=== PATIENT | female | born 1985 | race Caucasian/White ===

== ENCOUNTER 2020-05-15 18:45 | Emergency (ER) | payer MEDICARE, MEDICAID ==
[~2020-05-15] VITALS: Ht 162.6 cm; Wt 91.6 kg
[~2020-05-15 18:45] MED LIST: ABILIFY10 MG; ACCUNEB SO1.25 MG/1 INH; ACETAMINOPHEN-1 EAC1 PO; ADVIL PM CAPLE1 EACH PO; ALBUTEROL2.5 MG/31 INH; BACTRIM DS TAB1 EAC1 PO; BACTRIM DS TAB1 EACH; BACTRIM DS TAB1 EACH PO; BENTYL; BUSPIRONE HCL10 MG PO; BUTALB-APAP-CA1 EACH PO; CARAFATE 1 GM TA1 G1 PO; CIPROFLOXACIN500 M3 PO; CLEOCIN HCL150 MG PO; CLEOCIN HCL300 MG PO; CLONAZEPAM; CLONAZEPAM 1 MG1 M1 PO; COLACE 100 MG100 MG PO; COLACE100 MG PO; COMPAZINE10 MG PO; DESYREL; DOXYCYCLINE 10100 MG PO; DOXYCYCLINE HYC50 M1 PO; FIORICET 50-301 EACH PO; FLAGYL500 MG PO; GABAPENTIN; GUAIATUSSIN AC10 ML PO; HYDROCODON-ACE1 EACH PO; HYDROCODONE-AP1 EAC6 PO; HYDROXYZINE HCL25 M1 PO; IBUPROFEN 800800 M1 PO; KEFLEX500 MG PO; LIDOCAINE 22 %/30 GM MM; MULTI COMPLETE1 EACH PO; NORCO 5-325 TA1 EACH PO; PHENERGAN 25 MG25 M1 PO; PRAZOSIN HCL2 MG; PREDNISONE 20 M20 MG PO; PROMETHAZINE D480 ML PO; PROZAC 20 MG20 M1 PO; PROZAC20 MG PO; REMERON15 MG; TESSALON PERLE100 M1 PO; TOPAMAX 25 MG T25 M1 PO; TRAMADOL 50 MG50 MG PO; VENLAFAXINE HC150 M1; VENTOLIN HFA 1818 GM INH; VISTARIL 25 MG25 M1; VISTARIL 25 MG25 M1 PO; ZOFRAN 4 MG ORAL4 M1; ZPAK PO; ZYPREXA5 MG PO
[2020-05-15 18:56] VITALS: BP 147/81
[2020-05-15] MEDS ORDERED: SERTRALINE HCL100 MG PO (19:01)
[2020-05-15] MEDS ORDERED: LATUDA120 MG PO (19:01)
[2020-05-15] MEDS ORDERED: CLONAZEPAM 0.50.5 M1 PO (19:01)
[2020-05-15] MEDS ORDERED: DESYREL150 MG PO (19:02)
[2020-05-15] MEDS ORDERED: PROTONIX40 M2 PO (19:02)
[2020-05-15] MEDS ORDERED: SEROQUEL XR400 MG PO (19:02)
[2020-05-15] MEDS ORDERED: PRAZOSIN HCL5 MG PO (19:02)
[2020-05-15] MEDS ORDERED: HORIZANT600 MG PO (19:03)
[2020-05-15] MEDS ORDERED: BENZTROPINE MES1 MG PO (19:03)
== END 2020-05-15 19:36 | disposition home or self-care (01) ==
LOC: M.ERS 18:45
DX: Z20.828 Contact with and (suspected) exposure to other viral communicable diseases (principal); F17.210 Nicotine dependence, cigarettes, uncomplicated; Z88.1 Allergy status to other antibiotic agents; Z88.0 Allergy status to penicillin; Z98.51 Tubal ligation status; Z90.710 Acquired absence of both cervix and uterus; Z85.89 Personal history of malignant neoplasm of other organs and systems

== ENCOUNTER 2021-01-18 14:24 | Emergency (ER) | payer OTHER, MEDICAID ==
[~2021-01-18] VITALS: Ht 162.6 cm; Wt 83.9 kg
[~2021-01-18 14:24] MED LIST changes: +BENZTROPINE MES1 MG PO; +CLONAZEPAM 0.50.5 M1 PO; +DESYREL150 MG PO; +HORIZANT600 MG PO; +LATUDA120 MG PO; +PRAZOSIN HCL5 MG PO; +PROTONIX40 M2 PO; +SEROQUEL XR400 MG PO; +SERTRALINE HCL100 MG PO
[2021-01-18 15:55] VITALS: BP 122/54
== END 2021-01-18 17:56 | disposition home or self-care (01) ==
LOC: M.ERS 14:24
DX: Z20.822 Contact with and (suspected) exposure to COVID-19 (principal); Z88.1 Allergy status to other antibiotic agents; F17.210 Nicotine dependence, cigarettes, uncomplicated; Z88.0 Allergy status to penicillin; Z88.8 Allergy status to other drugs, medicaments and biological substances